=== PATIENT | female | born 1980 | race Caucasian/White ===

== ENCOUNTER 2025-09-28 06:08 | Day surgery (SDC) | payer OTHER ==
[~2025-09-28] VITALS: Ht 157.5 cm; Wt 77.7 kg
[~2025-09-28 06:08] MED LIST: SODIUM CHLORIDE 0.9% 1,000 ML ONE; TAMO10TA PO
[2025-09-28] MEDS ORDERED: LIDOCAINE/PF 2% 5 ML VIAL ID ONE (06:09)
[2025-09-28] MEDS ORDERED: ONDANSETRON HCL 4 MG/2 ML VIAL IVP ONE (06:09)
[2025-09-28] MEDS ORDERED: PROPOFOL 1% 20 ML VIAL IVP ONE (06:09)
[2025-09-28] MEDS ORDERED: DEXAMETHASONE SOD PHOS 4 MG/ML VIAL IVP ONE (06:09)
[2025-09-28] MEDS: SODIUM CHLORIDE 0.9% 1,000 ML IV ONE (06:55)
== END 2025-09-28 10:40 | disposition home or self-care (01) ==
LOC: SURGERY 06:08
PROVIDERS: ATTEND Surgery
DX: Z12.11 Encounter for screening for malignant neoplasm of colon (principal); D12.8 Benign neoplasm of rectum; Z85.3 Personal history of malignant neoplasm of breast; Z90.710 Acquired absence of both cervix and uterus; Z90.3 Acquired absence of stomach [part of]; Z83.3 Family history of diabetes mellitus; Z82.3 Family history of stroke
CPT/HCPCS: 45385; C1769; J2704; J1100; J3490; J2405; J7030; 88305